=== PATIENT | male | born 1925 | race Caucasian/White ===

== ENCOUNTER 2016-11-26 11:53 | Day surgery (SDC) | payer MEDICARE ==
[~2016-11-26] VITALS: Ht 177.8 cm; Wt 100.0 kg
[~2016-11-26 11:53] MED LIST: BRIM5DRO4 EACHEYE; CYAN500L PO; DORZ10DR3 EACHEYE; FLUT9.9S NS; FURO40TA6 PO; GLUC1TAB21 PO; LOSA25TA5 PO; METF500T4 PO; METO25TA35 PO; POLY17PO5 PO; POTA20TA14 PO; PRAM1TAB PO; RANI150T4 PO; ROSU10TA PO; TAMS-11 PO; TIMO10DR12 EACHEYE; TRAM50TA2 PO; VITA1CAP PO; WARF2TAB7 PO; [UNRECOGNIZED DRUG - OTHER] PO
[2016-11-26 12:28] VITALS: BP 130/77
[2016-11-26] MEDS ORDERED: DORZ10DR OP (13:01)
[2016-11-26] MEDS ORDERED: WARF6TAB7 PO (13:01)
[2016-11-26] MEDS ORDERED: WARF4TAB7 PO (13:01)
[2016-11-26 13:20] LABS: BLOOD UREA NITROGEN 22 mg/dL (7-18)
[2016-11-26 13:24] LABS: ASPARTATE AMINO TRANSFERASE 17 U/L (15-37)
[2016-11-26] MEDS ORDERED: PROPOFOL 10 MG/ML, 20ML ONE (14:15)
== END 2016-11-26 15:42 | disposition home or self-care (01) ==
LOC: CACL 11:53
PROVIDERS: ATTEND Internal Medicine Cardiovascular Disease
DX: I48.91 Unspecified atrial fibrillation (principal); I25.10 Atherosclerotic heart disease of native coronary artery without angina pectoris; I10 Essential (primary) hypertension; E11.9 Type 2 diabetes mellitus without complications; I25.5 Ischemic cardiomyopathy; E78.5 Hyperlipidemia, unspecified; G47.33 Obstructive sleep apnea (adult) (pediatric); H35.30 Unspecified macular degeneration; I44.7 Left bundle-branch block, unspecified; Z95.810 Presence of automatic (implantable) cardiac defibrillator; Z88.8 Allergy status to other drugs, medicaments and biological substances; Z95.5 Presence of coronary angioplasty implant and graft; Z87.891 Personal history of nicotine dependence; Z79.01 Long term (current) use of anticoagulants
CPT/HCPCS: 36415; 71020; 80053; 85025; 85610; 92960; J2704